=== PATIENT | male | born 1980 | race Caucasian/White ===

== ENCOUNTER 2017-01-17 17:36 | Emergency (ER) | payer OTHER ==
[2017-01-17] MEDS ORDERED: HYDROcod/ACET 5/325 Prepack 6 PO STA (18:07)
[2017-01-17] MEDS ORDERED: IBUPROFEN 800 MG TABLET PO STA (18:07)
[2017-01-17] MEDS ORDERED: HYDROcod/ACET 5/325 Prepack 6 PO ONE (18:09)
[2017-01-17] MEDS ORDERED: IBUPROFEN 800 MG TABLET PO ONE (18:09)
== END 2017-01-17 18:24 | disposition home or self-care (01) ==
DX: R20.0 Anesthesia of skin (principal); G89.18 Other acute postprocedural pain; M25.532 Pain in left wrist; R22.32 Localized swelling, mass and lump, left upper limb; F17.200 Nicotine dependence, unspecified, uncomplicated; Z98.890 Other specified postprocedural states; Z86.018 Personal history of other benign neoplasm
CPT/HCPCS: 99283; A9270

== ENCOUNTER 2017-01-21 20:34 | Emergency (ER) | payer OTHER | END 2017-01-21 21:17 | disposition home or self-care (01) | DX: Z48.02 Encounter for removal of sutures (principal); Z98.890 Other specified postprocedural states; R03.0 Elevated blood-pressure reading, without diagnosis of hypertension; F17.200 Nicotine dependence, unspecified, uncomplicated ==

== ENCOUNTER 2017-01-26 21:48 | Emergency (ER) | payer OTHER ==
[2017-01-26] MEDS ORDERED: CEPHALEXIN 250 MG Prepack 8 PO ONE ×2 (22:03→22:05)
== END 2017-01-26 22:17 | disposition home or self-care (01) ==
DX: T81.31XA Disruption of external operation (surgical) wound, not elsewhere classified, initial encounter (principal); R03.0 Elevated blood-pressure reading, without diagnosis of hypertension; J45.909 Unspecified asthma, uncomplicated; F17.200 Nicotine dependence, unspecified, uncomplicated

== ENCOUNTER 2017-05-23 18:15 | Emergency (ER) | payer OTHER ==
[2017-05-23 18:23] VITALS: BP 114/74
[2017-05-23] MEDS ORDERED: CYCLOBENZAPRINE 10 MG Prepack 2 PO PRN (19:06)
[2017-05-23] MEDS ORDERED: HYDROcod/ACET 5/325 Prepack 6 PO STA (19:06)
--- NOTE | 2017-05-23 19:09 | ED Physician Documentation ---
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 No history of back problems. He complains of right paralumbar pain which is nonradiating. No weakness, numbness, tingling, fevers, saddle anesthesia, incontinence.) Review of Systems Constitutional: denies: Fever, Chills Cardiac: denies: Chest pain / pressure, Palpitations Respiratory: denies: Dyspnea, Cough GI: denies: Abdominal Pain PD PAST MEDICAL HISTORY - Past Medical History Past Medical History: Yes Respiratory: Asthma - Past Surgical History Past Surgical History: Yes Ortho: Other - Present Medications Home Medications: Ambulatory Orders Medication Instructions Recorded Confirmed Cyclobenzaprine [Flexeril] 10 mg PO TID PRN #20 tablet 05/23/17 HYDROcod/ACETAM 5/325 [[place] 5/325] 1 - 2 ea PO Q6H PRN #15 tablet 05/23/17 Ibuprofen [Motrin] 800 mg PO Q8H PRN #30 tablet 05/23/17 - Allergies Allergies/Adverse Reactions: Allergies Allergy/AdvReac Type Severity Reaction Status Date / Time No Known Drug Allergies Allergy Verified 01/26/17 21:56 - Social History Does the pt smoke?: Yes Smoking Status: Current every day smoker Does the pt drink ETOH?: No - Immunizations Immunizations are current?: Yes - POLST Patient has POLST: No PD ED PE NORMAL - Vitals Vital signs reviewed: Yes - General General: Alert and oriented X 3, No acute distress - Abdomen Abdomen: Soft, Non tender - Back Back: No spinal TTP, Other (Tender to the right paralumbar musculature) - Extremities Extremities: Other (The patient has equal and normal Achilles and patellar reflexes bilaterally. Normal sensation in all areas of the legs. Patient denies saddle anesthesia. Normal strength in flexion-extension at the ankles, knees, and flexion of the hips.) - Neuro Neuro: Alert and oriented X 3, Normal speech Results - Vitals Vitals: Vital Signs - 24 hr 05/23/17 18:22 Temperature 36.7 C Heart Rate 70 Respiratory 18 Rate Blood Pressure 114/74 O2 Saturation 98 Oxygen O2 Source Room air PD MEDICAL DECISION MAKING - ED course ED course: This patient has seemingly uncomplicated musculoskeletal back pain. The patient has no "red flags." Specifically denies IV drug use, fevers, incontinence, saddle anesthesia. Spinal epidural abscess was considered, given that the patient has no fever, is not diabetic, has no spinal tenderness, does not use IV drugs, and has no bilateral neurologic symptoms, the diagnosis of spinal epidural abscess is considered exceedingly unlikely. The [place] prescription monitoring program was queried with regard to this patient. No concerning findings were found. Departure - Departure Disposition: 01 Home, Self Care Clinical Impression: Back pain Qualifiers: Back pain location: low back pain Chronicity: acute Back pain laterality: right Sciatica presence: without sciatica Qualified Code(s): M54.5 - Low back pain Condition: Good Record reviewed to determine appropriate education?: Yes Instructions: ED Low Back Pain Injury Prescriptions: Cyclobenzaprine [Flexeril] 10 mg PO TID PRN #20 tablet PRN Reason: Pain Ibuprofen [Motrin] 800 mg PO Q8H PRN #30 tablet PRN Reason: PAIN &/OR FEVER HYDROcod/ACETAM 5/325 [[place] 5/325] 1 - 2 ea PO Q6H PRN #15 tablet PRN Reason: Pain Comments: Call your doctor to arrange a follow-up appointment, make the next available appointment. In the interim, return anytime if worse or if new symptoms develop. Do not drink or drive while taking narcotic pain medication. Note that many narcotic pain relievers also contain Tylenol/acetaminophen. Please ensure that your total dose of acetaminophen from all sources does not exceed 3 g (3000 mg) per day. You may get constipated while on this medication. Take a stool softener such as Colace twice a day while you are on it. Also add an [id number] laxative such as senna or MiraLAX on any day that you do not have a bowel movement. If you received a narcotic pain medication or sedative while in the emergency department, do not drive for the next 24 hours.
[2017-05-23] MEDS ORDERED: CYCLOBENZAPRINE 10 MG Prepack 2 PO ONE (19:23)
[2017-05-23] MEDS ORDERED: HYDROcod/ACET 5/325 Prepack 6 PO ONE (19:23)
== END 2017-05-23 19:41 | disposition home or self-care (01) ==
LOC: ED 18:15
DX: M54.5 Low back pain (principal); F17.200 Nicotine dependence, unspecified, uncomplicated
CPT/HCPCS: 99282; 99283

== ENCOUNTER 2017-10-21 09:35 | Emergency (ER) | payer OTHER ==
[2017-10-21 10:30] LABS: BASOPHILS % (AUTO) 0.2 %; EOSINOPHILS # (AUTO) 0.1 10^3/uL (0.0-0.7); EOSINOPHILS % (AUTO) 0.9 %; HCT - HEMATOCRIT 51.3 % (42.0-52.0); HGB - HEMOGLOBIN 17.8 g/dL (14.0-18.0); LYMPHOCYTES # (AUTO) 1.3 10^3/uL (1.5-3.5); LYMPHOCYTES % (AUTO) 8.7 %; MEAN CORPUSCULAR HEMOGLOBIN 30.7 pg (27.0-31.0); MEAN CORPUSCULAR HGB CONC 34.7 g/dL (32.0-36.0); MEAN CORPUSCULAR VOLUME 88.5 fL (80.0-94.0); MEAN PLATELET VOLUME 7.1 fL (7.4-11.4); MONOCYTES # (AUTO) 1.5 10^3/uL (0.0-1.0); NEUTROPHILS # (AUTO) 11.6 10^3/uL (1.5-6.6); NEUTROPHILS % (AUTO) 80.2 %; RED BLOOD COUNT 5.79 10^6/uL (4.70-6.10); RED CELL DISTRIBUTION WIDTH 12.7 % (12.0-15.0); UNCORRECTED WHITE BLOOD COUNT 14.4 x10^3/uL; WHITE BLOOD COUNT 14.4 x10^3/uL (4.8-10.8)
[2017-10-21 10:43] LABS: ALBUMIN/GLOBULIN RATIO 1.3 (1.0-2.2); BILIRUBIN,TOTAL 1.6 mg/dL (0.2-1.0); CALCIUM 9.5 mg/dL (8.5-10.3); CREATININE 0.9 mg/dL (0.6-1.2); POTASSIUM 3.5 mmol/L (3.5-5.0); TOTAL PROTEIN 8.1 g/dL (6.7-8.2)
[2017-10-21] MEDS ORDERED: SODIUM CHLORIDE 0.9% 1,000 ML IV ONE ×2 (12:01→12:02)
[2017-10-21] MEDS ORDERED: ONDANSETRON 4 MG/2 ML VIAL IVP STA (12:19)
[2017-10-21] MEDS ORDERED: ONDANSETRON 4 MG/2 ML VIAL ONE (12:28)
[2017-10-21] MEDS ORDERED: IOPAMIDOL-300 100 ML VIAL ONE (12:41)
[2017-10-21 12:42] LABS: BILIRUBIN,URINE NEGATIVE (NEGATIVE); UA w/ MICROSCOPIC CHARGE YES
[2017-10-21 12:51] LABS: UR CULTURE IF IND NOT INDICATED; WBC,URINE 0-3 /HPF (0-3)
--- NOTE | 2017-10-21 13:21 | CT Preliminary Report ---
Exam: CT ABDOMEN/PELVIS W/ IMPRESSION: 1. Mild mesenteric lymphadenopathy in the left abdomen. Nonspecific. Possibly reactive. 2. No other localizing acute inflammatory process demonstrated. No other CT finding to explain clinic al symptoms. [facility] SITE ID: [id number]
--- NOTE | 2017-10-21 13:24 | CT Report ---
EXAM: CT ABDOMEN AND PELVIS EXAM DATE: 10/21/2017 01:09 PM. CLINICAL HISTORY: LLQ abdominal pain. COMPARISONS: None. TECHNIQUE: Routine helical CT imaging was performed through the abdomen and pelvis. IV contrast: 100C C ISOVUE 300. Enteric contrast: No. Reconstructions: Coronal and sagittal. In accordance with CT protocol optimization, one or more of the following dose reduction techniques w ere utilized for this exam: automated exposure control, adjustment of mA and/or KV based on patient s ize, or use of iterative reconstructive technique. FINDINGS: Lung Bases: Unremarkable. Liver: There are 4 small round low-density lesions within the liver. The largest lesion measures 8 mm in diameter in the right lobe. Too small to characterize but most likely cysts. Gallbladder/Bile Ducts: Unremarkable. Spleen: Normal. Pancreas: Normal. Adrenal Glands: Normal. Kidneys: Normal. No masses or hydronephrosis. Peritoneal Cavity/Bowel: No bowel dilation or obstruction. No abnormal fluid or gas collection. There is an enlarged mesenteric lymph node in the left mid abdomen measuring 1.9 x 1.2 cm on image 35. No other localizing mesenteric inflammatory process. The appendix is well visualized and normal. Pelvic Organs: Urinary bladder is empty. Vasculature: No aneurysms or other significant abnormality. Bones: No significant abnormality. Other: None. IMPRESSION: 1. Mild mesenteric lymphadenopathy in the left abdomen. Nonspecific. Possibly reactive. 2. No other localizing acute inflammatory process demonstrated. No other CT finding to explain clinic al symptoms. [facility] Referring Provider Line: [phone] SITE ID: [id number]
[2017-10-21] MEDS ORDERED: IOPAMIDOL-300 100 ML VIAL IVP ONE (13:40)
--- NOTE | 2017-10-21 14:32 | ED Physician Documentation ---
PD HPI ABD PAIN - Stated complaint Stated Complaint: N/V/D ABD PX - Chief complaint Chief Complaint: Abd Pain - History obtained from History obtained from: Patient - History of Present Illness Timing - onset: How many days ago (4) Timing - duration: Days (4) Timing - details: Still present Quality: Aching Location: LLQ Associated symptoms: Nausea, Diarrhea Similar symptoms before: Has not had sx before - Additional information Additional information: The patient is a 37-year-old male with history of asthma who presents with diarrhea of 4 days duration. He also reports nausea with occasional vomiting. He complains of left lower quadrant abdominal pain that is worse with changes in position. He had fever 3 days ago, but not since. He denies dysuria, but does report decreased urine output. In addition he has noticed blood on the toilet paper when he wipes, and with past history of hemorrhoids, he thinks he may have a recurrent hemorrhoid. He denies history of similar symptoms in the past. He's had no abdominal surgery. He denies any recent travel or any change in his diet, except for eating eggs [place] from locally sourced eggs. Review of Systems Constitutional: reports: Fever (3 days ago.) Ears: denies: Tinnitus/ringing Nose: denies: Congestion Throat: denies: Sore throat Cardiac: denies: Chest pain / pressure Respiratory: denies: Dyspnea, Cough GI: reports: Abdominal Pain, Nausea, Vomiting (occasionally), Diarrhea : denies: Dysuria Skin: denies: Rash Musculoskeletal: denies: Back pain Neurologic: denies: Focal weakness, Numbness, Headache PD PAST MEDICAL HISTORY - Past Medical History Past Medical History: No Respiratory: Asthma - Past Surgical History Past Surgical History: Yes Ortho: Other - Present Medications Home Medications: Ambulatory Orders Medication Instructions Recorded Confirmed Cyclobenzaprine [Flexeril] 10 mg PO TID PRN #20 tablet 05/23/17 10/21/17 HYDROcod/ACETAM 5/325 [[place] 5/325] 1 - 2 ea PO Q6H PRN #15 tablet 05/23/1705/31 Ibuprofen [Motrin] 800 mg PO Q8H PRN #30 tablet 05/23/17 10/21/17 Albuterol Sulfate [Proair Hfa 8.5 gm IH Q4H PRN #1 hfa.aer.ad 10/21/17 Inhaler] Ondansetron Odt [Zofran] 4 mg TL Q6H PRN #10 tablet 10/21/17 - Allergies Allergies/Adverse Reactions: Allergies Allergy/AdvReac Type Severity Reaction Status Date / Time No Known Drug Allergies Allergy Verified 01/26/17 21:56 - Social History Does the pt smoke?: Yes Smoking Status: Current every day smoker Does the pt drink ETOH?: No - Immunizations Immunizations are current?: Yes - POLST Patient has POLST: No PD ED PE NORMAL - Vitals Vital signs reviewed: Yes (normal) - General General: Alert and oriented X 3, Well developed/nourished - HEENT HEENT: Atraumatic, Moist mucous membranes, Pharynx benign - Neck Neck: Supple, no meningeal sign, No adenopathy - Cardiac Cardiac: RRR, No murmur - Respiratory Respiratory: No respiratory distress, Clear bilaterally - Abdomen Abdomen: Soft, Other (Tenderness to palpation in the left lower quadrant, without rebound tenderness or guarding.) - Rectal Rectal: Other (Excoriation of the skin surrounding the anus, consistent with diarrhea. No hemorrhoid visualized.) - Back Back: No CVA TTP - Derm Derm: No rash - Extremities Extremities: No edema, No calf tenderness / cord - Neuro Neuro: Alert and oriented X 3, No motor deficit, Normal speech Results - Vitals Vitals: Oxygen O2 Source Room air - Labs Labs: Microbiology 10/21/17 10:10 Campylobacter Antigen Assay - Final Stool Stool Culture - Preliminary NO SHIGA TOXIN 1 OR 2 DETECTED Laboratory Tests 10/21/17 10/21/17 10/21/17 10:10 10:10 10:40 WBC 14.4 H RBC 5.79 Hgb 17.8 Hct 51.3 MCV 88.5 MCH 30.7 MCHC 34.7 RDW 12.7 Plt Count 209 MPV 7.1 L Neut # 11.6 H Lymph # 1.3 L [place] # 1.5 H Eos # 0.1 Baso # 0.0 Absolute Nucleated RBC 0.01 Nucleated RBC % 0.0 Sodium 134 L Potassium 3.5 Chloride 100 L Carbon Dioxide 20 L Anion Gap 14.0 H BUN 15 Creatinine 0.9 Estimated GFR (MDRD) 95 Glucose 121 H Calcium 9.5 Total Bilirubin 1.6 H AST 21 ALT 26 Alkaline Phosphatase 72 Total Protein 8.1 Albumin 4.5 Globulin 3.6 Albumin/Globulin Ratio 1.3 Lipase 24 Urine Color YELLOW Urine Clarity CLOUDY Urine pH 6.0 Ur Specific [place] 1.025 Urine Protein NEGATIVE Urine Glucose (UA) NEGATIVE Urine Ketones 40 H Urine Occult Blood TRACE-INTA Urine Nitrite NEGATIVE Urine Bilirubin NEGATIVE Urine Urobilinogen 0.2 (NORMAL) Ur Leukocyte Esterase NEGATIVE Urine RBC 0-5 Urine WBC 0-3 Ur Squamous Epith Cells RARE Squamous Amorphous Sediment Marked Urine Bacteria Rare Ur Microscopic Review INDICATED Urine Culture Comments NOT INDICATED - Rads (name of study) CT abd/pelvis Radiology: Prelim report reviewed, EMP read contemporaneously, See rad report ( Mild mesenteric lymphadenopathy in the left abdomen. Nonspecific. Possibly reactive. No other localizing acute inflammatory process demonstrated. No other CT finding to explain clinical symptoms.) PD MEDICAL DECISION MAKING - ED course Complexity details: reviewed results, re-evaluated patient, considered differential, d/w patient ED course: The patient's presentation is significant for gastroenteritis with diarrhea of 4 days duration, with subsequent dehydration. Given the patient's clinical presentation and history of onset after eating eggs [place] from locally sourced eggs, the possibility of Salmonella is likely. Stool sample was collected and sent to the laboratory for stool culture. CT scan of the abdomen and pelvis reveals no evidence of diverticulitis. Treatment in the emergency department included administration of normal saline 2 L IV, and ondansetron 4 mg IV. The patient felt subjectively much improved after the above treatment. He is being discharged with prescription for Zofran. In addition, although the patient does not currently have asthma symptoms, a prescription was written for albuterol inhaler because he currently does not have a primary provider. 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 Departure - Departure Disposition: 01 Home, Self Care Clinical Impression: Dehydration Diarrhea Qualifiers: Diarrhea type: presumed infectious Qualified Code(s): A09 - Infectious gastroenteritis and colitis, unspecified Abdominal pain Qualifiers: Abdominal location: left lower quadrant Qualified Code(s): R10.32 - Left lower quadrant pain Condition: Stable Instructions: ED Dehydration, ED Diarrhea Bacterial Follow-Up: [facility] [Provider Group] Prescriptions: Albuterol Sulfate [Proair Hfa Inhaler] 8.5 gm IH Q4H PRN #1 hfa.aer.ad PRN Reason: Wheezing Ondansetron Odt [Zofran] 4 mg TL Q6H PRN #10 tablet PRN Reason: Nausea / Vomiting Comments: Drink plenty of fluids, and eat easily digested foods such as broth and chicken noodle soup. He can use Zofran as prescribed if needed for nausea. Follow up with your primary physician. Call to schedule next available appointment. Return to the emergency department if you develop increasing abdominal pain, persistent vomiting or recurrent dehydration, or otherwise worsening symptoms. Discharge Date/Time: 10/21/17 14:52
[2017-10-21 14:54] VITALS: BP 132/64
== END 2017-10-21 14:52 | disposition home or self-care (01) ==
LOC: ED 09:35
DX: E86.0 Dehydration (principal); A09 Infectious gastroenteritis and colitis, unspecified; R10.32 Left lower quadrant pain; J45.909 Unspecified asthma, uncomplicated; F17.200 Nicotine dependence, unspecified, uncomplicated
CPT/HCPCS: 74177; 80053; 81001; 83690; 85025; 87045; 87046; 96361; 96374; 99284; Q9967; 81003; 87086

== ENCOUNTER 2018-01-09 20:07 | Emergency (ER) | payer OTHER ==
[2018-01-09] MEDS ORDERED: IPRATROPIUM/ALBUTEROL 3 ML NEB INH STA (20:21)
--- NOTE | 2018-01-09 20:22 | ED Physician Documentation ---
PD HPI URI - Stated complaint Stated Complaint: ASTHMA ATTACK - Chief complaint Chief Complaint: Resp - History obtained from History obtained from: Patient - History of Present Illness Timing - onset: Other (37-year-old gentleman with history of mild intermittent asthma, never hospitalized for same with 2 days of cough and cold symptoms and increasing shortness of breath and he is out of his rescue inhaler and he has shortness of breath. No fevers.) Review of Systems Constitutional: denies: Fever, Chills Nose: reports: Rhinorrhea / runny nose, Congestion Respiratory: reports: Dyspnea, Cough GI: denies: Abdominal Pain PD PAST MEDICAL HISTORY - Past Medical History Respiratory: Asthma - Past Surgical History Past Surgical History: Yes Ortho: Other - Present Medications Home Medications: Ambulatory Orders Medication Instructions Recorded Confirmed Cyclobenzaprine [Flexeril] 10 mg PO TID PRN #20 tablet 05/23/17 10/21/17 HYDROcod/ACETAM 5/325 [[place] 5/325] 1 - 2 ea PO Q6H PRN #15 tablet 05/23/1705/31 Ibuprofen [Motrin] 800 mg PO Q8H PRN #30 tablet 05/23/17 10/21/17 Albuterol Sulfate [Proair Hfa 8.5 gm IH Q4H PRN #1 hfa.aer.ad 10/21/17 Inhaler] Ondansetron Odt [Zofran] 4 mg TL Q6H PRN #10 tablet 10/21/17 Albuterol Sulfate [Proventil Hfa 1 - 2 puffs IH Q4H PRN #1 01/09/18 Inhaler] hfa.aer.ad Beclomethasone 40 Mcg [Qvar 40] 1 puffs INH BID #1 inhaler 01/09/18 predniSONE [Deltasone] 60 mg PO DAILY 5 Days tablet 01/09/18 - Allergies Allergies/Adverse Reactions: Allergies Allergy/AdvReac Type Severity Reaction Status Date / Time No Known Drug Allergies Allergy Verified 01/26/17 21:56 - Social History Does the pt smoke?: Yes Smoking Status: Current every day smoker Does the pt drink ETOH?: No - Immunizations Immunizations are current?: Yes - POLST Patient has POLST: No PD ED PE NORMAL - Vitals Vital signs reviewed: Yes - General General: Alert and oriented X 3, Other (Talking in full sentences but pretty frequent coughing and audible wheezing at the bedside.) - HEENT HEENT: PERRL, EOMI, Ears normal, Pharynx benign - Neck Neck: Supple, no meningeal sign, No bony TTP - Cardiac Cardiac: RRR, No murmur - Respiratory Respiratory: Other (Frequent coughing and slightly tachypneic with loud expiratory wheezes but decent air motion.) - Abdomen Abdomen: Non tender - Neuro Neuro: Alert and oriented X 3, Normal speech Results - Vitals Vitals: Vital Signs - 24 hr 01/09/18 01/09/18 01/09/18 20:12 20:29 21:11 Temperature 36.1 C L Heart Rate 89 78 76 Respiratory 25 H 20 20 Rate Blood Pressure 179/90 H O2 Saturation 93 01/09/18 21:25 Temperature 37.1 C Heart Rate 82 Respiratory 16 Rate Blood Pressure 131/71 H O2 Saturation 96 Oxygen O2 Source Room air PD MEDICAL DECISION MAKING - ED course ED course: 37-year-old gentleman with viral syndrome and asthma exacerbation, near complete relief but was still mild wheezing after a DuoNeb and this was followed by a second nebulizer treatment and steroids. Departure - Departure Disposition: 01 Home, Self Care Clinical Impression: Asthma Qualifiers: Asthma severity: mild Asthma persistence: intermittent Asthma complication type : with status asthmaticus Qualified Code(s): J45.22 - Mild intermittent asthma with status asthmaticus Condition: Good Record reviewed to determine appropriate education?: Yes Instructions: Asthma Dc Prescriptions: Albuterol Sulfate [Proventil Hfa Inhaler] 1 - 2 puffs IH Q4H PRN #1 hfa.aer.ad PRN Reason: Cough Beclomethasone 40 Mcg [Qvar 40] 1 puffs INH BID #1 inhaler predniSONE [Deltasone] 60 mg PO DAILY 5 Days tablet Comments: Recheck with your doctor in 1 week, sooner or return if worse. Recheck blood pressure then as it was high tonight, but you were ill so understandable. Discharge Date/Time: 01/09/18 21:25
[2018-01-09] MEDS ORDERED: ALBUTEROL NEB 2.5 MG/3 ML INH STA (20:49)
[2018-01-09] MEDS ORDERED: predniSONE 20 MG TABLET PO STA (20:49)
[2018-01-09 21:25] VITALS: BP 131/71
== END 2018-01-09 21:25 | disposition home or self-care (01) ==
LOC: ED 20:07
DX: J45.22 Mild intermittent asthma with status asthmaticus (principal); F17.200 Nicotine dependence, unspecified, uncomplicated
CPT/HCPCS: 94640; 99283; J7512; J7613; J7620

== ENCOUNTER 2018-07-15 05:58 | Emergency (ER) | payer OTHER ==
--- NOTE | 2018-07-15 06:05 | ED Physician Documentation ---
PD HPI DYSPNEA - Stated complaint Stated Complaint: SOA - History obtained from History obtained from: Patient - History of Present Illness Timing - onset: Enter time (01:00) Timing - onset during: Sleep Timing - details: Abrupt onset Pain level max: 0 Pain level now: 0 Inciting event(s): Out of meds (ran out of albuterol MDI (uses infrequently, was unaware he had run out until he tried to use it tonight. This MDI has lasted a few months)) Improved by: Rest Worsened by: Exertion Associated symptoms: Cough, Wheezing. No: Fever, Chest pain / discomfort, Palpitations, Bilateral edema, Unilateral edema Similar symptoms before: Diagnosis (asthma) Recently seen: Not recently seen - Additional information Additional information: awoke 1 AM today with dyspnea, wheezing, c/w his asthma exacerbations. Review of Systems Constitutional: denies: Fever, Sweats Nose: reports: Reviewed and negative Throat: denies: Sore throat Cardiac: reports: Reviewed and negative Respiratory: reports: Dyspnea, Cough, Wheezing PD PAST MEDICAL HISTORY - Past Medical History Respiratory: Asthma - Past Surgical History Past Surgical History: Yes Ortho: Other - Present Medications Home Medications: Ambulatory Orders Medication Instructions Recorded Confirmed Albuterol Sulfate [Proventil Hfa 1 - 2 puffs IH Q4H PRN #1 01/09/18 Inhaler] hfa.aer.ad Albuterol Sulf [Ventolin Hfa 1 - 2 puffs INH Q4HR PRN #1 inhaler 07/15/18 Inhaler] - Allergies Allergies/Adverse Reactions: Allergies Allergy/AdvReac Type Severity Reaction Status Date / Time No Known Drug Allergies Allergy Verified 07/15/18 06:17 - Social History Does the pt smoke?: Yes Smoking Status: Current every day smoker Does the pt drink ETOH?: No - Immunizations Immunizations are current?: Yes - POLST Patient has POLST: No PD ED PE NORMAL - Vitals Vital signs reviewed: Yes - General General: Alert and oriented X 3, No acute distress, Well developed/nourished - Cardiac Cardiac: RRR, No murmur - Respiratory Respiratory: No respiratory distress PD ED PE EXPANDED - Respiratory Respiratory: Wheezing (diffuse expiratory wheezing with prolonged expiratory phase), Decreased breath sounds Results - Vitals Vitals: Vital Signs - 24 hr 07/15/18 07/15/18 07/15/18 06:00 06:15 06:17 Temperature 36.5 C Heart Rate 72 66 76 Respiratory 18 11 L 12 Rate Blood Pressure 107/96 H 107/96 H O2 Saturation 98 98 07/15/18 06:40 Temperature 36.3 C L Heart Rate 72 Respiratory 18 Rate Blood Pressure 116/87 H O2 Saturation 97 Oxygen O2 Source Room air PD MEDICAL DECISION MAKING - ED course Complexity details: reviewed old records, re-evaluated patient, considered differential, d/w patient ED course: Patient reported complete resolution of symptoms after a single duoneb. Reexam ( auscultation) of lungs reveals completely CTA bilateral lung sounds with excellent air movement. - Sepsis Event Vital Signs: Vital Signs - 24 hr 07/15/18 07/15/18 07/15/18 06:00 06:15 06:17 Temperature 36.5 C Heart Rate 72 66 76 Respiratory 18 11 L 12 Rate Blood Pressure 107/96 H 107/96 H O2 Saturation 98 98 07/15/18 06:40 Temperature 36.3 C L Heart Rate 72 Respiratory 18 Rate Blood Pressure 116/87 H O2 Saturation 97 Oxygen O2 Source Room air Departure - Departure Disposition: 01 Home, Self Care Clinical Impression: Asthma Condition: Good Instructions: ED Reactive Airway Disease Follow-Up: RAFAELA CEE MD [Primary Care Provider] - Prescriptions: Albuterol Sulf [Ventolin Hfa Inhaler] 1 - 2 puffs INH Q4HR PRN #1 inhaler PRN Reason: Shortness Of Air/Wheezing Discharge Date/Time: 07/15/18 06:55
[2018-07-15] MEDS ORDERED: IPRATROPIUM/ALBUTEROL 3 ML NEB INH STA (06:10)
[2018-07-15 06:46] VITALS: BP 116/87
== END 2018-07-15 06:55 | disposition home or self-care (01) ==
LOC: ED 05:58
DX: J45.909 Unspecified asthma, uncomplicated (principal); F17.200 Nicotine dependence, unspecified, uncomplicated
CPT/HCPCS: 94640; 94664; 99283

== ENCOUNTER 2018-08-15 14:31 | Emergency (ER) | payer OTHER ==
[2018-08-15 14:58] VITALS: BP 127/81
[2018-08-15] MEDS ORDERED: PROPARACAINE 0.5% OPHTH DROPS 15 ML EACHEYE STA (15:27)
[2018-08-15] MEDS ORDERED: ERYTHROMYCIN OPHTH OINT 1 GM TUBE RIGHTEYE STA (15:36)
--- NOTE | 2018-08-15 15:37 | ED Physician Documentation ---
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 He does not wear contacts.) Review of Systems Constitutional: denies: Fever, Chills Eyes: reports: Loss of vision, Decreased vision, Photophobia, Discharge, Irritation Ears: denies: Loss of hearing, Ear pain PD PAST MEDICAL HISTORY - Past Medical History Respiratory: Asthma - Past Surgical History Past Surgical History: Yes Ortho: Other - Present Medications Home Medications: Ambulatory Orders Medication Instructions Recorded Confirmed Albuterol Sulfate [Proventil Hfa 1 - 2 puffs IH Q4H PRN #1 01/09/18 Inhaler] hfa.aer.ad Albuterol Sulf [Ventolin Hfa 1 - 2 puffs INH Q4HR PRN #1 inhaler 07/15/18 Inhaler] Erythromycin Base [Erythromycin 1 applic OP 5XD #1 oint...g. 08/15/18 Ophthalmic Ointment] - Allergies Allergies/Adverse Reactions: Allergies Allergy/AdvReac Type Severity Reaction Status Date / Time No Known Drug Allergies Allergy Verified 08/15/18 14:58 - Social History Does the pt smoke?: Yes Smoking Status: Current every day smoker Does the pt drink ETOH?: No - Immunizations Immunizations are current?: Yes - POLST Patient has POLST: No PD ED PE NORMAL - Vitals Vital signs reviewed: Yes - General General: Alert and oriented X 3, No acute distress - HEENT HEENT: PERRL, EOMI, Other (He had complete pain relief with proparacaine. He has a small superior corneal abrasion with negative [place] sign on fluorescein exam.) - Neck Neck: Supple, no meningeal sign, No bony TTP - Neuro Neuro: Alert and oriented X 3, Normal speech Results - Vitals Vitals: Vital Signs - 24 hr 08/15/18 14:55 Temperature 36.5 C Heart Rate 85 Respiratory 18 Rate Blood Pressure 127/81 H O2 Saturation 94 Oxygen O2 Source Room air PD MEDICAL DECISION MAKING - Sepsis Event Vital Signs: Vital Signs - 24 hr 08/15/18 14:55 Temperature 36.5 C Heart Rate 85 Respiratory 18 Rate Blood Pressure 127/81 H O2 Saturation 94 Oxygen O2 Source Room air Departure - Departure Disposition: Home, Self Care Clinical Impression: Corneal abrasion, right Qualifiers: Encounter type: initial encounter Qualified Code(s): S05.01XA - Injury of conjunctiva and corneal abrasion without foreign body, right eye, initial encounter Condition: Good Record reviewed to determine appropriate education?: Yes Instructions: ED Eye Injury Corneal Abrasion Prescriptions: Erythromycin Base [Erythromycin Ophthalmic Ointment] 1 applic OP 5XD #1 oint...g. Comments: Follow-up with your eye doctor on or about Wednesday if not better.
== END 2018-08-15 15:48 | disposition home or self-care (01) ==
LOC: ED 14:31
DX: S05.01XA Injury of conjunctiva and corneal abrasion without foreign body, right eye, initial encounter (principal); W61 Contact with birds (domestic) (wild); Y92.79 Other farm location as the place of occurrence of the external cause; F17.209 Nicotine dependence, unspecified, with unspecified nicotine-induced disorders
CPT/HCPCS: 99283; J3490

== ENCOUNTER 2019-01-06 22:38 | Emergency (ER) | payer OTHER ==
[2019-01-06] MEDS ORDERED: IPRATROPIUM/ALBUTEROL 3 ML NEB INH STA (22:52)
--- NOTE | 2019-01-06 23:03 | ED Physician Documentation ---
PD HPI DYSPNEA - Stated complaint Stated Complaint: DIFF BREATHING - Chief complaint Chief Complaint: Resp - History obtained from History obtained from: Patient, Family - History of Present Illness Timing - onset: How many hours ago (2), Today Timing - onset during: Light activity Timing - duration: Hours (2) Timing - details: Gradual onset, Still present Inciting event(s): Out of meds, Allergic rxn/anaphylaxis Improved by: Inhaler/neb Worsened by: Allergens Associated symptoms: Wheezing. No: Fever, Cough, Hemoptysis Similar symptoms before: Diagnosis (allergic asthma) Recently seen: Not recently seen - Additional information Additional information: 38-year-old male with a history of allergic asthma was pulling up the carpet in his home today when he developed an acute asthma attack. He was unable to find his rescue inhaler and he is come to the emergency department short of breath wheezing tightly. He has a history previously of asthma with maybe 3 attacks per year requiring some rescue. He has not been on a maintenance inhaler and he does not have to use his other on a daily basis. He is recently been to purify is environment is removing the carpet from his house and using air purifiers. Review of Systems Constitutional: denies: Fever, Chills Eyes: denies: Decreased vision Ears: denies: Ear pain Nose: denies: Rhinorrhea / runny nose, Congestion Throat: denies: Sore throat Cardiac: denies: Chest pain / pressure, Palpitations Respiratory: reports: Dyspnea, Cough, Wheezing GI: denies: Abdominal Pain, Abdominal Swelling, Nausea, Vomiting : denies: Dysuria, Frequency PD PAST MEDICAL HISTORY - Past Medical History Respiratory: Asthma - Past Surgical History Past Surgical History: Yes Ortho: Other - Present Medications Home Medications: Ambulatory Orders Medication Instructions Recorded Confirmed Albuterol Sulfate [Proventil Hfa 1 - 2 puffs IH Q4H PRN #1 01/09/18 Inhaler] [email or web address] Albuterol Sulf [Ventolin Hfa 1 - 2 puffs INH Q4HR PRN #1 inhaler 07/15/18 Inhaler] Erythromycin Base [Erythromycin 1 applic OP 5XD #1 oint...g. 08/15/18 Ophthalmic Ointment] Albuterol 2.5 mg INH Q4H PRN #30 neb 01/07/19 Albuterol Sulf [Ventolin Hfa 1 - 2 puffs INH Q4HR PRN #1 inhaler 01/07/19 Inhaler] Nebulizer and Compressor [Home 1 each MC DAILY PRN #1 each 01/07/19 Nebulizer Plus Sidestream] - Allergies Allergies/Adverse Reactions: Allergies Allergy/AdvReac Type Severity Reaction Status Date / Time No Known Drug Allergies Allergy Verified 01/06/19 22:42 - Social History Does the pt smoke?: Yes Smoking Status: Current every day smoker Does the pt drink ETOH?: No - Immunizations Immunizations are current?: Yes - POLST Patient has POLST: No PD ED PE NORMAL - Vitals Vital signs reviewed: Yes (tachy and hypertensive ) - General General: Alert and oriented X 3, Well developed/nourished - HEENT HEENT: Atraumatic, PERRL, EOMI - Neck Neck: Supple, no meningeal sign - Cardiac Cardiac: RRR, No murmur - Respiratory Respiratory: Other (tachypneic with scatttered wheezes and rhonchi ) - Abdomen Abdomen: Soft, Non tender - Back Back: No CVA TTP, No spinal TTP - Derm Derm: Normal color, Warm and dry, No rash - Extremities Extremities: No deformity, No edema - Neuro Neuro: Alert and oriented X 3, puncher and fastener 2-12 intact, No motor deficit, No sensory deficit, Normal speech Eye Opening: Spontaneous Motor: Obeys Commands Verbal: Oriented GCS Score: 15 - Psych Psych: Normal mood, Normal affect Results - Vitals Vitals: Vital Signs - 24 hr 01/06/19 01/06/19 01/07/19 22:40 22:58 00:15 Temperature 36.4 C L 36.8 C Heart Rate 110 H 84 79 Respiratory 22 18 12 Rate Blood Pressure 129/89 H 120/82 H O2 Saturation 97 96 Oxygen O2 Source Room air PD MEDICAL DECISION MAKING - ED course Complexity details: reviewed results, re-evaluated patient, considered differential, d/w patient, d/w family ED course: 38-year-old male with an acute asthma attack after pulling the carpet in his home is administered a DuoNeb treatment here in the emergency department. He still is tight after that treatment, although he did have significant relief. He had marked relief with his second treatment. He does not have an albuterol inhaler at home and we have no way to dispense 1 to him here. He does have an oxygen tank at home and will use the nebulizer equipment with a dose to go home with. He is also administered dexamethasone 10 mg orally here. We will refill his prescription for an albuterol inhaler and albuterol for use in the nebulizer. Departure - Departure Disposition: Home, Self Care Clinical Impression: Asthma attack Qualifiers: Asthma severity: moderate Asthma persistence: persistent Qualified Code(s): J45.41 - Moderate persistent asthma with (acute) exacerbation Instructions: ED Reactive Airway Disease Follow-Up: RAFAELA CEE MD [Primary Care Provider] - Prescriptions: Albuterol Sulf [Ventolin Hfa Inhaler] 1 - 2 puffs INH Q4HR PRN #1 inhaler PRN Reason: Shortness Of Air/Wheezing Albuterol 2.5 mg INH Q4H PRN #30 neb PRN Reason: Wheezing Nebulizer and Compressor [Home Nebulizer Plus Sidestream] 1 each MC DAILY PRN #1 each PRN Reason: soa
[2019-01-06] MEDS ORDERED: ALBUTEROL NEB 2.5 MG/3 ML INH STA (23:12)
[2019-01-06] MEDS ORDERED: DEXAMETHASONE 10 MG/ML VIAL PO STA (23:17)
[2019-01-07 00:15] VITALS: BP 120/82
[2019-01-07] MEDS ORDERED: ALBUTEROL NEB 2.5 MG/3 ML INH STA (00:26)
== END 2019-01-07 00:41 | disposition home or self-care (01) ==
LOC: ED 22:38
DX: J45.41 Moderate persistent asthma with (acute) exacerbation (principal); F17.200 Nicotine dependence, unspecified, uncomplicated
CPT/HCPCS: 94640; 94664; 99283

== ENCOUNTER 2019-07-03 16:49 | Emergency (ER) | payer SELFPAY ==
[2019-07-03 17:01] VITALS: BP 116/85
== END 2019-07-03 19:03 | disposition left against medical advice (07) ==
LOC: ED 16:49
DX: Z53.21 Procedure and treatment not carried out due to patient leaving prior to being seen by health care provider (principal)

== ENCOUNTER 2024-02-16 16:45 | Outpatient (CLI) | payer BC, OTHER ==
[2024-02-16 20:22] LABS: BASOPHILS % (AUTO) 0.1 %; EOSINOPHILS # (AUTO) 0.2 10^3/uL (0.0-0.7); EOSINOPHILS % (AUTO) 2.6 %; HCT - HEMATOCRIT 49.6 % (42.0-52.0); HGB - HEMOGLOBIN 16.3 g/dL (14.0-18.0); LYMPHOCYTES # (AUTO) 1.6 10^3/uL (1.5-3.5); LYMPHOCYTES % (AUTO) 18.1 %; MEAN CORPUSCULAR HEMOGLOBIN 29.9 pg (27.0-31.0); MEAN CORPUSCULAR HGB CONC 32.9 g/dL (32.0-36.0); MEAN CORPUSCULAR VOLUME 90.8 fL (80.0-94.0); MEAN PLATELET VOLUME 9.4 fL (7.4-11.4); MONOCYTES # (AUTO) 0.5 10^3/uL (0.0-1.0); MONOCYTES % (AUTO) 5.6 %; NEUTROPHILS # (AUTO) 6.4 10^3/uL (1.5-6.6); NEUTROPHILS % (AUTO) 73.4 %; PLT - PLATELET COUNT 255 10^3/uL (130-450); RED BLOOD COUNT 5.46 10^6/uL (4.70-6.10); RED CELL DISTRIBUTION WIDTH 12.9 % (12.0-15.0); WHITE BLOOD COUNT 8.7 x10^3/uL (4.8-10.8)
[2024-02-16 20:56] LABS: ALBUMIN 4.4 g/dL (3.2-5.5); ALBUMIN/GLOBULIN RATIO 1.4 (1.0-2.2); BILIRUBIN,TOTAL 1.1 mg/dL (0.2-1.0); CALCIUM 10.2 mg/dL (8.5-10.3); CREATININE 0.8 mg/dL (0.6-1.3); POTASSIUM 4.4 mmol/L (3.5-4.5); TOTAL PROTEIN 7.5 g/dL (6.4-8.9)
== END 2024-02-16 17:00 | disposition home or self-care (01) ==
LOC: LAB.N 16:45
PROVIDERS: ATTEND Family Medicine
DX: R10.32 Left lower quadrant pain (principal)
CPT/HCPCS: 36415; 80053; 85025

== ENCOUNTER 2024-06-19 13:30 | Outpatient (CLI) | payer BC | END 2024-06-19 13:31 | disposition home or self-care (01) | LOC: NS 13:30 | PROVIDERS: ATTEND Nurse Practitioner Family | DX: K57.30 Diverticulosis of large intestine without perforation or abscess without bleeding (principal); Z71.3 Dietary counseling and surveillance | CPT/HCPCS: 97802 ==